=== PATIENT | male | born 1980 | race African-American/Black ===

== ENCOUNTER → 2018-09-16 09:04 | Outpatient (CLI) | payer OTHER, SELFPAY ==
--- NOTE | 2018-09-16 09:07 | DI.MRI.S_ITS ---
PROCEDURE: MR SHOULDER RT W CON INDICATIONS: pain in shoulder - right TECHNIQUE: After the administration of 12 mL of dilute intra-articular Gadolinium contrast, oblique coronal T1 and T2 spin echo with fat saturation, oblique sagittal T1 spin echo with and without fat saturation, oblique sagittal T2 fast spin echo with fat saturation, axial T1 spin echo with fat saturation through the shoulder. COMPARISON: [facility], [place], [place] SHOULDER INJECTION MR/CT RT, 09/16/2018, 9:26. Outside Facility, RG, XR SHOULDER 2V RIGHT, 04/13/2018, 7:57. Outside Facility, RG, MRI UPPER EXT. JOINT WITH CONTRAST, 11/25/2017, 11:09. FINDINGS: Image quality: Metallic hardware overlying the acromion distorts image quality and evaluation of the superior margin of the rotator cuff and the adjacent osseous structures. Please note that comparison to the previous examination is difficult as only 2 imaging sequences are present and noted to be jumbled. Rotator cuff: Evaluation of the superior margin of the rotator cuff is limited related to metallic hardware overlying the acromion. No definitive full-thickness tear of the rotator cuff is identified. There may be mild supraspinatus tendinopathy. Thickening of the distal supraspinatus tendon is noted at the level of the footprint. Infraspinatus and subscapularis tendons appear to be intact. The teres minor tendon is intact. There is no significant atrophy of the rotator cuff muscles. Bones and bursae: Evaluation of the osseous structures of the right shoulder is limited related to metallic hardware artifact. The clinical icular joint is not adequately seen. No fractures or dislocations are evident. No significant degenerative changes of the glenohumeral joint are evident. No suspicious osseous lesions of the glenoid or proximal humerus are appreciated. Adequate distention of the glenohumeral joint with the injected contrast is evident. No loose intra-articular joint bodies are appreciated. No definite contrast is seen extending into the subacromial subdeltoid bursa. Capsule and soft tissues: There has been a previous biceps tenodesis. The area of the reattached tendon is not included on this examination. The glenoid labrum appears to be grossly intact. No definitive labral tears are identified. The superior, middle, and inferior glenohumeral ligaments appear intact. IMPRESSION: 1. Limited MRI of the right shoulder related to prominent metallic artifact from previous acromial surgery. 2. Supraspinatus tendinopathy. No full-thickness rotator cuff tear is evident. 3. Status post biceps tenodesis. The reattached tendon is not adequately included. 4. No loose intra-articular joint bodies. 5. No discrete labral tears. Dictated by: Ezra White M.D. on 09/16/2018 at 13:02 Approved by: Ezra White M.D. on 09/16/2018 at 13:09
--- NOTE | 2018-09-16 09:07 | DI.RAD.S_ITS ---
PROCEDURE: FL SHOULDER INJECTION MR/CT RT INDICATIONS: rt shoulder pain TECHNIQUE: The indications, alternatives, benefits, risks, and complications of the procedure were explained to the patient. Written informed consent was obtained and placed in the chart. The shoulder was examined fluoroscopically and a site for needle placement chosen for entry into the glenohumeral joint from an anterior approach. The skin was prepped and draped in a sterile fashion, and 1% lidocaine infiltrated from skin down to joint capsule. A spinal needle was inserted into the glenohumeral joint, and a small amount of iodinated contrast media injected to confirm intra-articular placement of the needle tip. This was followed by approximately 12 mL dilute solution of a gadolinium containing MR contrast agent. The needle was removed and a dressing was applied. The patient was given postprocedural instructions and sent to the MR suite for MR imaging. FINDINGS: A single fluoroscopic spot image demonstrates intra-articular location of injected iodinated contrast. IMPRESSION: Successful fluoroscopically guided administration of dilute Gadolinium solution into the shoulder joint for MR arthrogram. Dictated by: Gerson Floyd M.D. on 09/16/2018 at 10:33 Approved by: Gerson Floyd M.D. on 09/16/2018 at 10:34
== END ==
PROVIDERS: Visit Provider Physical Medicine & Rehabilitation
DX: M25.511 Pain in right shoulder (principal); M75.91 Shoulder lesion, unspecified, right shoulder; M67.911 Unspecified disorder of synovium and tendon, right shoulder; Z98.890 Other specified postprocedural states
CPT/HCPCS: 23350; 73222; 77002

== ENCOUNTER 2019-06-15 11:18 | Day surgery (SDC) | payer OTHER, SELFPAY ==
[2019-06-15] VITALS (8 sets, daily range): BP systolic 111–149; BP diastolic 73–91; PULSE 16–70; RESP 12–17; TEMP 36.3–36.9; O2SAT 94–99; BMI 29.8
--- NOTE | 2019-06-15 | PATH_ITS ---
[facility] Accession Number: [id number] . 01 Material submitted: . gastrointestinal site - STOMACH . 02 Diagnosis: Stomach, Biopsy: Portions of gastric antral and body-type mucosa with mild chronic gastritis. Negative for H. pylori organisms by immunohistochemistry studies. Negative for intestinal metaplasia. Negative for dysplasia or malignancy. MRV 06/17/2019 1321 Local . 02 Electronically signed: . Abida Petersen MD, Pathologist NPI- [id number] . 01 Gross description: . STOMACH: Received in formalin are 2 fragment(s) of mohr, soft tissue measuring 0.2 x 0.2 x 0.2 cm in aggregate submitted entirely in 1 cassette(s) /[facility] 06/15/2019 2144 Local . 02 Microscopic: . An immunohistochemical stain was performed to evaluate for Helicobacter organisms, and is negative. The control stain showed appropriate reactivity. . * This test was developed and its performance characteristics determined by [facility]. It has not been cleared or approved by the U.S. Food and Drug Administration. The FDA has determined that such clearance or approval is not necessary. This test is used for clinical purposes. It should not be regarded as investigational or for research. . 02 Pathologist provided ICD-10: R10.13, K29.70 . 02 CPT . 823156, S04018 Performed at: 01 [facility] [address], [place], [place] [id number] MD Norberto Leija MD Phone: [phone] Performed at: 02 [facility] [place] [address] [place], [place] [id number] MD Heidi Pina MD Phone: [phone]
[2019-06-15] MEDS: SODIUM CHLORIDE 0.9% 1,000 ML 150 ML IV (12:00)
--- NOTE | 2019-06-15 12:14 | PM.HP.1 ---
History of Present Illness History of Present Illness Date Patient Seen: 06/15/19 Time Patient Seen: 12:14 Chief complaint: [id number] EGD Narrative: Abdominal discomfort unresponsive to medications Patient History Medical History (Updated 06/15/19 @ 12:15 by Johnny Sesay MD) Asthma (Acute) Family & Social History Social History: household members spouse,children Meds Home Medications and Allergies Home Medications Medication Instructions Recorded Confirmed Type albuterol sulfate 90 mcg/actuation 1 puff INHALATION DAILY PRN 50 07/30/18 06/15/19 History aerosol inhaler Days #17 gram fluticasone propionate-salmeterol 2 puff INHALATION BID 07/30/18 06/15/19 History 230 mcg-21 mcg/actuation HFA inhaler hydrochlorothiazide 12.5 mg tablet 12.5 mg PO DAILY 07/30/18 06/15/19 History lidocaine 5 % topical patch 1 patch TRANSDERMAL Q12-24H PRN 30 07/30/18 06/15/19 History Days #30 each montelukast 10 mg tablet 10 mg PO DAILY 90 Days #90 tab 07/30/18 06/15/19 History omeprazole 20 mg capsule,delayed 20 mg PO DAILY 60 Days #60 cap 07/30/18 06/15/19 History release Allergies Allergy/AdvReac Type Severity Reaction Status Date / Time No Known Drug Allergies Allergy Verified 06/15/19 11:37 Exam Vital Signs (past 8 hours): - 06/15/19 11:40 Temperature 97.9 F Pulse Rate 16 L Respiratory Rate 16 Blood Pressure 149/91 H Pulse Oximetry 99 Oxygen Delivery Method Room Air Narrative Exam Narrative: Oropharynx clear lesion Chest clear to auscultation percussion Cardiac exam reveals no S3 or murmur Assessment & Plan Assessment & Plan narrative: Abdominal discomfort unresponsive to medications. Rule out unhealed esophagitis versus peptic disease rule out Helicobacter risks, benefits, alternatives have been explained.
--- NOTE | 2019-06-15 12:16 | PM.OP.ENDO ---
Operative Date/Time/Diagnoses Date of procedure: 06/15/19 Time of procedure: 12:16 Pre-op diagnosis: See indication and findings Procedure & Clinicians Study performed: EGD Same procedure as scheduled: Yes Indications: Abdominal pain unresponsive to medications Surgeon: Johnny Sesay Procedure Notes Procedure in detail: After informed consent was obtained the patient was placed in left lateral decubitus position. The video upper scope was placed into the oropharynx with the patient's health swallowed into the esophagus. The esophagus, stomach, duodenum were carefully examined. On withdrawal, retroflexed view the GE junction was performed. The scope was removed. The patient tolerated the procedure well. Blood loss none Complications none Sedation Total sedation time 14 minutes Versed 9 mg fentanyl 150 micro g IV titration Findings 1. Normal esophagus 2. Mild streaky gastric erythema in the antrum biopsies taken to rule out Helicobacter 3. Normal duodenal bulb and sweep Will merely await pathology results keep patient on current medications at this time. We can then discussed by telephone. In general though his symptoms seem somewhat better.
[2019-06-15] MEDS: MIDAZOLAM 5 MG/5 ML VIAL IV (12:46)
[2019-06-15] MEDS: fentaNYL 250 MCG/5 ML INJ IV (12:46)
== END 2019-06-15 13:56 | disposition home or self-care (01) ==
PROVIDERS: PCP Nurse Practitioner Family; Visit Provider Internal Medicine Gastroenterology
PROC: 0DJ08ZZ Inspection of Upper Intestinal Tract, Via Natural or Artificial Opening Endoscopic (ICD-10-PCS; CPT 43235; principal; 2019-06-15 12:30)
DX: K29.70 Gastritis, unspecified, without bleeding (principal); R12 Heartburn
CPT/HCPCS: 43239; J2250; J3010

== ENCOUNTER 2019-07-12 08:01 | Emergency (ER) | payer OTHER, SELFPAY ==
[2019-07-12 08:13] VITALS: BP 140/97; PULSE 52; RESP 14; TEMP 36.5; O2SAT 100; BMI 265.5
--- NOTE | 2019-07-12 08:17 | DI.RAD.S_ITS ---
PROCEDURE: XR CHEST 1V INDICATIONS: chest pain TECHNIQUE: One view of the chest was acquired. COMPARISON: None. FINDINGS: Surgical changes and devices: None. Lungs and pleura: Lungs are clear. No pleural effusions or pneumothorax. Mediastinum: Mediastinal contours appear normal. Heart size is normal. Bones and chest wall: No suspicious bony lesions. Overlying soft tissues appear unremarkable. IMPRESSION: No evidence acute pulmonary process. Dictated by: Skyler Ma M.D. on 07/12/2019 at 8:28 Approved by: Skyler Ma M.D. on 07/12/2019 at 8:29
[2019-07-12 08:30] LABS: Add Manual Diff / Slide Review NO; Basophils Absolute Auto 0 /uL (0-100); Basophils Percent Auto 0.2 % (0-2); Eosinophils Absolute Auto 300 /uL (0-450); Eosinophils Percent Auto 7.6 % (2-4); Hematocrit 40.5 % (41-53); Hemoglobin 14.1 g/dL (13.5-17.5); Lymphocytes Absolute Auto 1800 /uL (1100-4500); Lymphocytes Percent Auto 41.2 % (25-40); Mean Corpuscular HGB Conc 34.7 % (30-36); Mean Corpuscular Hemoglobin 30.8 PG (26-34); Mean Corpuscular Volume 88.7 fL (80-100); Monocytes Absolute Auto 300 /uL (0-900); Monocytes Percent Auto 7.4 % (3-14); Neutrophils Absolute Auto 1900 /uL (1500-7000); Neutrophils Percent Auto 43.6 % (50-75); Platelet Count 242 X10^3/uL (150-400); Red Blood Cell Count 4.56 X10^6/uL (4.5-5.9); Red Cell Distribution Width 13.5 % (11.6-14.8); White Blood Cell Count 4.5 X10^3/uL (4.5-11.0)
--- NOTE | 2019-07-12 08:35 | ED.CHESTPAIN ---
HPI - Chest Pain General Chief Complaint: Chest Pain Stated Complaint: chest pain, SOB Time Seen by Provider: 07/12/19 08:06 Source: patient Mode of arrival: Ambulatory History of Present Illness HPI narrative: Patient is a 38-year-old male who for the last 3-4 days. No provocation or palliation. No shortness of breath with exertion. It sometimes hurts when he moves his right arm. Radiates up into his right shoulder. He has no nausea no abdominal pain. In fact he recently had an EGD for chronic ongoing abdominal discomfort but he does not have that now. He does have a history of GERD but he states that this is not GERD. MD complaint: chest pain Duration: intermittent Onset: during rest and during exertion Relieving factors: nothing Exacerbating factors: nothing Related Data Home Medications Medication Instructions Recorded Confirmed albuterol sulfate 90 mcg/actuation 1 puff INHALATION DAILY PRN 50 07/30/18 06/15/19 aerosol inhaler Days #17 gram fluticasone propionate-salmeterol 2 puff INHALATION BID 07/30/18 06/15/19 230 mcg-21 mcg/actuation HFA inhaler hydrochlorothiazide 12.5 mg tablet 12.5 mg PO DAILY 07/30/18 06/15/19 lidocaine 5 % topical patch 1 patch TRANSDERMAL Q12-24H PRN 30 07/30/18 06/15/19 Days #30 each montelukast 10 mg tablet 10 mg PO DAILY 90 Days #90 tab 07/30/18 06/15/19 omeprazole 20 mg capsule,delayed 20 mg PO DAILY 60 Days #60 cap 07/30/18 06/15/19 release Allergies Allergy/AdvReac Type Severity Reaction Status Date / Time NSAIDS (Non-Steroidal Allergy Severe Wheezing Verified 07/12/19 08:17 Anti-Inflamma Review of Systems Review of Systems Narrative: GENERAL: Denies chills, fatigue, malaise, fever, sweats, travel HEENT: Denies sinus pain, ear pain, sore throat, difficulty swallowing, neck pain RESPIRATORY: Denies dyspnea, cough, wheezing, hemoptysis, sputum. CARDIOVASCULAR: See HPI GASTROINTESTINAL: Denies nausea, vomiting, abdominal pain, diarrhea, constipation, melena. : Denies dysuria, frequency, incontinence, hematuria, urinary retention, flank pain. MUSCULOSKELETAL: Denies weakness, joint pain, or bony pain SKIN: No rash, no erythema, no pruritus NEUROLOGIC: Denies weakness, dizziness, headache, numbness, change in speech, confusion PSYCHIATRIC: No concerning psychosocial issues. 12 point review of systems is negative except for those stated above and HPI Patient History Medical History Asthma (Acute) Social History household members: spouse and children Smoking Status: Never smoker Substance Use Type: does not use Exam Initial Vital Signs Initial Vital Signs: Vital Signs Temperature 97.7 F 07/12/19 08:13 Pulse Rate 52 L 07/12/19 08:13 Respiratory Rate 14 07/12/19 08:13 Blood Pressure 140/97 H 07/12/19 08:13 Pulse Oximetry 100 07/12/19 08:13 GENERAL: Well-appearing, well-nourished and in no acute distress. HEENT: Head atraumatic,EOMI, pupils reactive, face symmetric, moist mucous membranes CARDIOVASCULAR: Regular rate and rhythm without murmurs, rubs or gallops. RESPIRATORY: Breath sounds equal bilaterally, no wheezes rales or rhonchi. ABDOMEN: Soft, nontender. Normoactive bowel sounds all 4 quadrants. No guarding or rebound. EXTREMITIES: Normal range of motion, no clubbing or edema. Neurovascularly intact NEUROLOGICAL: Alert and oriented x4.Normal gait and speech. Cranial nerves II through XII grossly intact. SKIN: Warm, dry, no laceration, no petechiae, no rashes or lesions. Scores HEART Score Heart Score history: Slightly Suspicious Heart Score EKG: Normal Heart Score Age: < 45 years old Heart Score risk factors: No known risk factors Heart Score troponin: < or = to normal limit Heart Score Total: 0 PERC Score Age greater than or equal to 50 years: No Heart rate greater than or equal to 100 bpm: No Room Air O2 Sat less than 95%: No Unilateral leg swelling: No Recent trauma or surgery: No Hemoptysis: No Prior PE or DVT: No Hormone Use: No Total PERC Score: 0 Course Orders Ordered: ED Orders 07/12/19 08:15 Complete Blood Count AUTO DIFF Stat Comprehensive Metabolic Panel Stat D Dimer Stat Lipase Stat Partial Thromboplastin Time Stat Prothrombin Time INR Stat Troponin & CK Cardiac Panel Stat 07/12/19 08:17 XR chest 1V Stat EKG-12 Lead Stat Discontinued Medications Acetaminophen (Tylenol) 975 mg PO NOW ONE Stop: 07/12/19 08:34 Last Admin: 07/12/19 09:01 Dose: 975 mg Documented by: KATLIN Vital Signs Vital signs: Vital Signs - 8 hr 07/12/19 08:13 07/12/19 09:21 Temperature 97.7 F Pulse Rate 52 L 56 L Respiratory Rate 14 19 Blood Pressure 140/97 H Blood Pressure [Left Arm] 122/92 H Pulse Oximetry 100 100 MDM - Chest Pain Lab Data Attestation: I reviewed the patient's lab results. Result diagrams: 07/12/19 08:15 07/12/19 08:15 Labs: Lab Results 07/12/19 07/12/19 07/12/19 Range/Units 08:15 08:15 08:15 WBC 4.5 (4.5-11.0) X10^3/uL RBC 4.56 (4.5-5.9) X10^6/uL Hgb 14.1 (13.5-17.5) g/dL Hct 40.5 L (41-53) % MCV 88.7 (80-100) fL MCH 30.8 (26-34) PG MCHC 34.7 (30-36) % RDW 13.5 (11.6-14.8) % Plt Count 242 (150-400) X10^3/uL Neut % (Auto) 43.6 L (50-75) % Lymph % (Auto) 41.2 H (25-40) % [place] % (Auto) 7.4 (3-14) % Eos % (Auto) 7.6 H (2-4) % Baso % (Auto) 0.2 (0-2) % Neut # (Auto) 1900 (4591-7647) /uL Lymph # (Auto) 1800 (0127-0318) /uL [place] # (Auto) 300 (0-900) /uL Eos # (Auto) 300 (0-450) /uL Baso # (Auto) 0 (0-100) /uL PT 12.3 (10.1-12.7) SECONDS INR 1.1 (0.9-1.3) APTT 26 L (26.4-36.2) SECONDS D-Dimer (<230) ng/mL Sodium 142 (137-145) mmol/L Potassium 4.3 (3.4-5.1) mmol/L Chloride 107 (98-107) mmol/L Carbon Dioxide 29 (22-32) mmol/L BUN 8 L (9-20) mg/dL Creatinine 1.20 (0.66-1.25) mg/dL Estimated GFR > 60.0 (>60) mL/min BUN/Creatinine Ratio 6.7 (6-22) Glucose 104 H (70-100) mg/dL Calcium 9.6 (8.4-10.2) mg/dL Total Bilirubin 1.5 H (0.2-1.3) mg/dL AST 34 (17-59) IU/L ALT 26 (<50) IU/L Alkaline Phosphatase 100 (38-126) U/L Total Creatine Kinase 235 H (55-170) U/L CK-MB (CK-2) 1.44 (<2.37) ng/mL CK-MB (CK-2) Rel Index 0.6 L (1.5-5.0) % Troponin I 0.016 (0.01-0.034) ng/mL Total Protein 7.7 (6.3-8.2) g/dL Albumin 4.5 (3.5-5.0) g/dL Globulin 3.2 (1.7-4.1) g/dL Albumin/Globulin Ratio 1.4 (1.0-2.8) Lipase 158 (23-300) U/L 07/12/19 Range/Units 08:15 WBC (4.5-11.0) X10^3/uL RBC (4.5-5.9) X10^6/uL Hgb (13.5-17.5) g/dL Hct (41-53) % MCV (80-100) fL MCH (26-34) PG MCHC (30-36) % RDW (11.6-14.8) % Plt Count (150-400) X10^3/uL Neut % (Auto) (50-75) % Lymph % (Auto) (25-40) % [place] % (Auto) (3-14) % Eos % (Auto) (2-4) % Baso % (Auto) (0-2) % Neut # (Auto) (1000-5796) /uL Lymph # (Auto) (1380-5582) /uL [place] # (Auto) (0-900) /uL Eos # (Auto) (0-450) /uL Baso # (Auto) (0-100) /uL PT (10.1-12.7) SECONDS INR (0.9-1.3) APTT (26.4-36.2) SECONDS D-Dimer < 200 (<230) ng/mL Sodium (137-145) mmol/L Potassium (3.4-5.1) mmol/L Chloride (98-107) mmol/L Carbon Dioxide (22-32) mmol/L BUN (9-20) mg/dL Creatinine (0.66-1.25) mg/dL Estimated GFR (>60) mL/min BUN/Creatinine Ratio (6-22) Glucose (70-100) mg/dL Calcium (8.4-10.2) mg/dL Total Bilirubin (0.2-1.3) mg/dL AST (17-59) IU/L ALT (<50) IU/L Alkaline Phosphatase (38-126) U/L Total Creatine Kinase (55-170) U/L CK-MB (CK-2) (<2.37) ng/mL CK-MB (CK-2) Rel Index (1.5-5.0) % Troponin I (0.01-0.034) ng/mL Total Protein (6.3-8.2) g/dL Albumin (3.5-5.0) g/dL Globulin (1.7-4.1) g/dL Albumin/Globulin Ratio (1.0-2.8) Lipase (23-300) U/L Imaging Data Chest x-ray: Radiologist's impression: PROCEDURE: XR CHEST 1V INDICATIONS: chest pain TECHNIQUE: One view of the chest was acquired. COMPARISON: None. FINDINGS: Surgical changes and devices: None. Lungs and pleura: Lungs are clear. No pleural effusions or pneumothorax. Mediastinum: Mediastinal contours appear normal. Heart size is normal. Bones and chest wall: No suspicious bony lesions. Overlying soft tissues appear unremarkable. IMPRESSION: No evidence acute pulmonary process. Dictated by: Skyler Ma M.D. on 07/12/2019 at 8:28 ECG Data Attestation: I personally reviewed and interpreted this ECG as follows: Prior ECG tracings: not available for review Interpretation: Normal sinus rhythm rate [address] elevations depressions T-wave inversion noted in lead 3 MDM Narrative Medical decision making narrative: Patient's pain seems to be slightly musculoskeletal. It has been ongoing for a number of days. Low risk for PE and NH. Troponin EKG chest x-ray are negative. He is not able to take NSAIDs due to his asthma. He is given Tylenol which had to be crushed up in order for him to take it he is not good at swallowing pills. He did not want require anything more for pain. I discussed all findings with the patient and spouse, Education has been performed regarding treatment plan, diagnosis, warning signs and symptoms and all concerns have been addressed. Verbally agree with and understood all of the above. Discharge Plan Departure Patient Disposition: Home Clinical Impression: Atypical chest pain Instructions: DI for Atypical Chest Pain Activity Restrictions/Additional Instructions: *You have been diagnosed with atypical chest pain *What to do: Clear pain today seems to be musculoskeletal. Heart x-ray are overall reassuring. However you may require further workup with her PCP *Continue to take medications as directed Tylenol 1000 mg every 6 hours if needed for pain. Do not exceed more than 4000 mg in 24 hours *Follow up with your primary care provider in 2-3 days *Return to ER if you should have increasing chest pain worsening shortness of or any new, worsening or concerning symptoms Prescriptions: No Action lidocaine 5 % adhesive patch,medicated 1 patch Transdermal Q12-24H PRN (Reason: Pain (Scale Score 1-3)) 30 Days Qty: 30 RF: 0 omeprazole 20 mg capsule,delayed release(DR/EC) 20 mg PO DAILY 60 Days Qty: 60 RF: 0 montelukast 10 mg tablet 10 mg PO DAILY 90 Days Qty: 90 RF: 0 albuterol sulfate 90 mcg/actuation HFA aerosol inhaler 1 puff INHALATION DAILY PRN (Reason: asthma) 50 Days Qty: 17 RF: 0 fluticasone propion-salmeterol [Advair HFA] 230-21 mcg/actuation HFA aerosol inhaler 2 puff INHALATION BID RF: 0 hydrochlorothiazide 12.5 mg tablet 12.5 mg PO DAILY RF: 0 Referrals: [facility] [place] [Provider Group] Ellen Hobbs ARNP [Primary Care Provider] -
[2019-07-12 08:40] LABS: INR 1.1 (0.9-1.3); Prothrombin Time 12.3 SECONDS (10.1-12.7)
[2019-07-12 08:41] LABS: Alanine Aminotransferase 26 IU/L (<50); Albumin 4.5 g/dL (3.5-5.0); Albumin Globulin Ratio 1.4 (1.0-2.8); Alkaline Phosphatase 100 U/L (38-126); Aspartate Aminotransferase 34 IU/L (17-59); BUN Creatinine Ratio 6.7 (6-22); Bilirubin Total 1.5 mg/dL (0.2-1.3); Blood Urea Nitrogen 8 mg/dL (9-20); Calcium 9.6 mg/dL (8.4-10.2); Carbon Dioxide 29 mmol/L (22-32); Chloride 107 mmol/L (98-107); Creatine Kinase 235 U/L (55-170); Estimated Glomerular Filt Rate > 60.0 mL/min (>60); Globulin 3.2 g/dL (1.7-4.1); Glucose 104 mg/dL (70-100); HEMOLYSIS < 15 (0-50); Lipase 158 U/L (23-300); Potassium 4.3 mmol/L (3.4-5.1); Sodium 142 mmol/L (137-145); Total Protein 7.7 g/dL (6.3-8.2)
[2019-07-12 08:43] LABS: PTT Partial Thromboplastin Tim 26 SECONDS (26.4-36.2)
[2019-07-12 08:51] LABS: D Dimer < 200 ng/mL (<230)
[2019-07-12 08:52] LABS: Troponin I 0.016 ng/mL (0.01-0.034)
[2019-07-12 08:56] LABS: CKMB % Relative Index 0.6 % (1.5-5.0); Creatine Kinase MB 1.44 ng/mL (<2.37)
[2019-07-12] MEDS: ACETAMINOPHEN 325 MG TABLET 975 MG PO (09:01)
[2019-07-12 09:21] VITALS: BP 122/92; PULSE 56; RESP 19; O2SAT 100
== END 2019-07-12 09:33 | disposition home or self-care (01) ==
PROVIDERS: Emergency Provider Emergency Medicine; PCP Nurse Practitioner Family
DX: R07.89 Other chest pain (principal)
CPT/HCPCS: 36415; 71045; 80053; 82550; 82553; 83690; 84484; 85025; 85379; 85610; 85730; 93005; 99283; 99285